=== PATIENT | female | born 1980 | race Two or more races ===

== ENCOUNTER → 2018-01-02 10:30 | Outpatient (CLI) | payer OTHER | END | disposition home or self-care (01) | LOC: LAB 10:30 | DX: Z00.00 Encounter for general adult medical examination without abnormal findings (principal); E78.49 Other hyperlipidemia ==

== ENCOUNTER 2018-03-24 11:59 | Emergency (ER) | payer OTHER ==
[~2018-03-24] VITALS: Ht 157.5 cm; Wt 70.8 kg
== END 2018-03-24 17:47 | disposition home or self-care (01) ==
LOC: ER 11:59
DX: R42 Dizziness and giddiness (principal)

== ENCOUNTER → 2018-05-28 06:29 | Outpatient (CLI) | payer OTHER | END | disposition home or self-care (01) | LOC: LAB 06:29 | DX: N91.2 Amenorrhea, unspecified (principal); N92.1 Excessive and frequent menstruation with irregular cycle; E03.8 Other specified hypothyroidism; D63.8 Anemia in other chronic diseases classified elsewhere; N30.90 Cystitis, unspecified without hematuria; E78.00 Pure hypercholesterolemia, unspecified ==

== ENCOUNTER 2018-05-28 08:27 | Outpatient (CLI) | payer OTHER | END 2018-05-28 08:37 | disposition home or self-care (01) | LOC: MAMO-SONO 08:27 | DX: N63.10 Unspecified lump in the right breast, unspecified quadrant (principal); N63.20 Unspecified lump in the left breast, unspecified quadrant; N64.4 Mastodynia; N60.11 Diffuse cystic mastopathy of right breast; Z12.31 Encounter for screening mammogram for malignant neoplasm of breast ==

== ENCOUNTER 2018-08-12 07:22 | Outpatient (CLI) | payer OTHER | END 2018-08-12 15:40 | disposition home or self-care (01) | LOC: MAMO-SONO 07:22 | DX: N60.11 Diffuse cystic mastopathy of right breast (principal); N60.12 Diffuse cystic mastopathy of left breast ==